=== PATIENT | male | born 1985 | race African-American/Black ===

== ENCOUNTER 2017-04-25 15:50 | Emergency (ER) | payer BC ==
[2017-04-25 15:57] VITALS: BP 149/88
--- NOTE | 2017-04-25 17:07 | ER Document Report ---
HPI - HPI Patient complains to provider of: pruritic rash Onset: Other - 2 weeks Pain Level: Denies Context: 31 yo male with pruritic rash that is spreading for 2 weeks. Started on his right forearm. No fever or chills, no tick bit, no travel outside the [place]. Spread to other parts of the body No fever or chills. No hx eczema. Associated Symptoms: None. denies: Body/muscle aches Exacerbated by: Denies Relieved by: Denies Notes: 31 yo male with pruritic rash for 2 weeks. Some papules, linear, blisters started in right arm, spred to trunk and legs. No tick bite, no travel outside [place]. No fever of chills. - ROS ROS below otherwise negative: Yes Systems Reviewed and Negative: Yes All other systems reviewed and negative - DERM Skin Color: Normal Past Medical History - General Information source: Patient - Social History Smoking Status: Unknown if Ever Smoked Frequency of alcohol use: None Drug Abuse: None Lives with: Family Family History: None - Medical History Medical History: Negative Renal/ Medical History: Denies: Hx Peritoneal Dialysis Surgical Hx: Negative - Immunizations Hx Diphtheria, Pertussis, Tetanus Vaccination: No - unk Vertical Provider Document - CONSTITUTIONAL Agree With Documented VS: Yes Exam Limitations: No Limitations General Appearance: No Apparent Distress - INFECTION CONTROL TRAVEL OUTSIDE OF THE [place] IN LAST 30 DAYS: No - HEENT HEENT: Normal ENT Exam - NECK Neck: Supple - RESPIRATORY Respiratory: Breath Sounds Normal, No Respiratory Distress O2 Sat by Pulse Oximetry: 100 - CARDIOVASCULAR Cardiovascular: Regular Rate, Regular Rhythm - MUSCULOSKELETAL/EXTREMETIES Musculoskeletal/Extremeties: MAEW, FROM - NEURO Level of Consciousness: Awake, Alert - DERM Integumentary: Rash - papular, linear arms, leg, waist, scaling in areas or trunk, Course - Vital Signs Vital signs: Temp Pulse Resp BP Pulse Ox 98.3 F 57 L 16 149/88 H 100 04/25/17 15:55 04/25/17 15:55 04/25/17 15:55 04/25/17 15:55 04/25/17 15:55 Discharge - Discharge Clinical Impression: Urticaria, Poison ryann Condition: Good Disposition: HOME, SELF-CARE Instructions: Use of Diphenhydramine, Corticosteroid Medication ([facility]), Contact Dermatitis ([facility]), Acute Urticaria ([facility]) Additional Instructions: Continue [id number] Benadryl Finish the steroid medication see the reimbursement rep if persists The emergency room for any signs of infection or fever Please complete the patient satisfaction survey if you get one, and return it.. If you do not receive a survey, then you can go to the [facility] website, [email or web address] and place your comments about your very good care. Thank you very much. It was a pleasure being your medical provider today. Prescriptions: Prednisone [Deltasone 10 mg Tablet] 10 mg PO ASDIR PRN #21 tablet PRN Reason: Forms: Return to Work
== END 2017-04-25 17:30 | disposition home or self-care (01) ==
LOC: ER 15:50
DX: L23.7 Allergic contact dermatitis due to plants, except food (principal)
CPT/HCPCS: 99282

== ENCOUNTER 2017-10-16 13:37 | Emergency (ER) | payer BC ==
[2017-10-16 13:52] VITALS: BP 125/78
[2017-10-16] MEDS ORDERED: DIPH/PERTUSS(ACELL)/TETANUS VAC/PF 0.5 ML SYR (>=10YO) IM ONE (14:18)
--- NOTE | 2017-10-16 14:21 | ER Document Report ---
HPI - HPI Patient complains to provider of: Mouth laceration Onset: Just prior to arrival Onset/Duration: Sudden Quality of pain: Achy Pain Level: 2 Context: Patient states he was playing basketball and another player elbowed him in the mouth. Patient with laceration inside mouth. Patient uncertain if the tooth may have punctured his skin. Associated Symptoms: Other - Oral laceration Exacerbated by: Denies Relieved by: Denies Similar symptoms previously: No Recently seen / treated by doctor: No - ROS ROS below otherwise negative: Yes Systems Reviewed and Negative: Yes All other systems reviewed and negative - RESPIRATORY Respiratory: DENIES: Trouble Breathing - GASTROINTESTINAL Gastrointestinal: DENIES: Nausea, Patient vomiting - DERM Skin Color: Normal Skin Problems: Laceration Past Medical History - General Information source: Patient - Social History Smoking Status: Never Smoker Frequency of alcohol use: Occasional Drug Abuse: None Occupation: [employer] Family History: None - Medical History Medical History: Negative Pulmonary Medical History: Denies: Hx Asthma, Hx Pneumonia Renal/ Medical History: Denies: Hx Peritoneal Dialysis Skin Medical History: Denies Hx Eczema, Denies Hx MRSA, Denies Hx Psoriasis Surgical Hx: Negative - Immunizations Hx Diphtheria, Pertussis, Tetanus Vaccination: No - unk Vertical Provider Document - CONSTITUTIONAL Agree With Documented VS: Yes Exam Limitations: No Limitations General Appearance: WD/WN, No Apparent Distress - INFECTION CONTROL TRAVEL OUTSIDE OF THE [place] IN LAST 30 DAYS: No - HEENT HEENT: Atraumatic, Normocephalic Mouth Diagram: 1 - lac - NECK Neck: Normal Inspection - RESPIRATORY Respiratory: Breath Sounds Normal, No Respiratory Distress O2 Sat by Pulse Oximetry: 99 - CARDIOVASCULAR Cardiovascular: Regular Rate, Regular Rhythm - MUSCULOSKELETAL/EXTREMETIES Musculoskeletal/Extremeties: MAEW - NEURO Level of Consciousness: Awake, Alert, Appropriate Motor/Sensory: No Motor Deficit - DERM Integumentary: Warm, Dry, Laceration - Irregular laceration to sulcus inside mouth, no concern for dental fragment Course - Re-evaluation Re-evalutation: 10/16/17 14:[address] Farmer, Dr. Farmer to bedside, does not advise suturing at this time. - Vital Signs Vital signs: Temp Pulse Resp BP Pulse Ox 98.8 F 78 16 125/78 99 10/16/17 13:52 10/16/17 13:52 10/16/17 13:52 10/16/17 13:52 10/16/17 13:52 Discharge - Discharge Clinical Impression: Laceration of oral cavity Qualifiers: Encounter type: initial encounter Qualified Code(s): S01.512A - Laceration without foreign body of oral cavity, initial encounter Condition: Stable Disposition: HOME, SELF-CARE Instructions: Oral Laceration, Not Sutured ([facility]), Prophylactic Antibiotic ([facility]) , Tetanus Immunization Given ([facility]) Additional Instructions: Return immediately for any new or worsening symptoms Followup with your primary care provider, call tomorrow to make a followup appointment Rinse mouth out after meals Prescriptions: Cephalexin Monohydrate [Keflex 500 mg Capsule] 500 mg PO Q6H 5 Days capsule Referrals: [facility] [Provider Group] - Follow up as needed
== END 2017-10-16 14:58 | disposition home or self-care (01) ==
LOC: ER 13:37
DX: S01.512A Laceration without foreign body of oral cavity, initial encounter (principal); W51.XXXA Accidental striking against or bumped into by another person, initial encounter; Y93.67 Activity, basketball
CPT/HCPCS: 90471; 90715; 99282

== ENCOUNTER 2020-01-10 21:15 | Emergency (ER) | payer BC ==
[2020-01-10] MEDS ORDERED: TETRACAINE HCL 0.5% OPH SOLN 4 ML OS ONE (21:42)
--- NOTE | 2020-01-10 21:43 | ER Document Report ---
ED Medical Screen (RME) - General Chief Complaint: Redness of Eye Stated Complaint: EYE PAIN Time Seen by Provider: 01/10/20 21:41 TRAVEL OUTSIDE OF THE [place] IN LAST 30 DAYS: No - HPI Notes: 01/10/20 21:42 Patient is a 34-year-old male with no significant past medical history who presents complaining of left eye redness, irritation, burning, occasional itching that began this morning. He has not had any drainage. Denies drug allergies. He does have some light sensitivity. No fever or GRUBBS. No recent illness. I have treated and performed a rapid initial assessment of this patient. A comprehensive ED assessment and evaluation of the patient, analysis of test results and completion of medical decision making process will be conducted by additional ED providers. PHYSICAL EXAMINATION: GENERAL: Well-appearing, well-nourished and in no acute distress. A&Ox4. Answers questions appropriately. Left eye: Left eye is injected without any obvious drainage or matting. PERRLA, EOMI bilaterally. - Related Data Allergies/Adverse Reactions: No Known Allergies Allergy (Verified 03/27/14 09:13) Past Medical History - Social History Chew tobacco use (# tins/day): No Frequency of alcohol use: Occasional Drug Abuse: None Pulmonary Medical History: Denies: Hx Asthma, Hx Pneumonia Renal/ Medical History: Denies: Hx Peritoneal Dialysis Skin Medical History: Denies Hx Eczema, Denies Hx MRSA, Denies Hx Psoriasis - Immunizations Hx Diphtheria, Pertussis, Tetanus Vaccination: No - unk Physical Exam - Vital signs Vitals: Temp Pulse Resp BP Pulse Ox 98.1 F 60 20 123/68 99 01/10/20 21:01/10/20 21:29 01/10/20 21:01/10/20 21:29 01/10/20 21:29 Course - Vital Signs Vital signs: Temp Pulse Resp BP Pulse Ox 98.1 F 60 20 123/68 99 01/10/20 21:29 01/10/20 21:29 01/10/20 21:29 01/10/20 21:29 01/10/20 21:29
--- NOTE | 2020-01-11 | ER Document Report ---
HPI - HPI Patient complains to provider of: Left eye redness Time Seen by Provider: 01/10/20 21:41 Onset: This morning Onset/Duration: Waxing and waning Quality of pain: Achy Pain Level: 1 Context: Patient presents complaining of left eye redness and pruritus. Patient denies any drainage. Patient denies any use of contact lenses. Patient states he is supposed to wear glasses although has not worn them for over a year. Patient denies any trauma to the eye. Patient denies any change in vision. Associated Symptoms: Other - Left eye redness. denies: Fever, Headache Exacerbated by: Denies Relieved by: Denies Similar symptoms previously: No Recently seen / treated by doctor: No - ROS ROS below otherwise negative: Yes Systems Reviewed and Negative: Yes All other systems reviewed and negative - EENT EENT: REPORTS: Eye problems - NEURO Neurology: DENIES: Headache - GASTROINTESTINAL Gastrointestinal: DENIES: Nausea, Patient vomiting - DERM Skin Color: Normal Skin Problems: None Past Medical History - General Information source: Patient - Social History Smoking Status: Never Smoker Chew tobacco use (# tins/day): No Frequency of alcohol use: Occasional Drug Abuse: None Occupation: Retail Family History: None Patient has suicidal ideation: No Patient has homicidal ideation: No - Medical History Medical History: Negative Pulmonary Medical History: Denies: Hx Asthma, Hx Pneumonia Renal/ Medical History: Denies: Hx Peritoneal Dialysis Skin Medical History: Denies Hx Eczema, Denies Hx MRSA, Denies Hx Psoriasis Surgical Hx: Negative - Immunizations Hx Diphtheria, Pertussis, Tetanus Vaccination: No - unk Vertical Provider Document - CONSTITUTIONAL Agree With Documented VS: Yes Exam Limitations: No Limitations General Appearance: WD/WN - INFECTION CONTROL TRAVEL OUTSIDE OF THE [place] IN LAST 30 DAYS: No - HEENT HEENT: Atraumatic, Normocephalic Notes: Sclera injected bilaterally, left worse than right, minimal edema noted to upper and lower eyelid, no ophthalmoplegia, extraocular movements intact. No corneal abrasion, ulcer, foreign body or dendrite. No fluorescein uptake. Intraocular pressure measured at 16 with a confidence interval 95. - NECK Neck: Normal Inspection, Supple. negative: Lymphadenopathy-Left, Lymphadenopathy-Right - RESPIRATORY Respiratory: Breath Sounds Normal, No Respiratory Distress - CARDIOVASCULAR Cardiovascular: Regular Rate, Regular Rhythm - MUSCULOSKELETAL/EXTREMETIES Musculoskeletal/Extremeties: MAEW - NEURO Level of Consciousness: Awake, Alert, Appropriate Motor/Sensory: No Motor Deficit - DERM Integumentary: Warm, Dry, No Rash Course - Re-evaluation Re-evalutation: 01/10/20 23:55 Patient reports that he is supposed to wear glasses but did not bring them and has not worn them for some time. Patient denies any change in vision. Patient does complain of occasional pruritus to the eyes. Patient with minimal mucousy discharge to the left eye. Will cover with antibiotics as well as an allergy eyedrop and encourage outpatient follow-up with ophthalmology. - Vital Signs Vital signs: Temp Pulse Resp BP Pulse Ox 98.1 F 60 20 123/68 99 01/10/20 21:29 01/10/20 21:29 01/10/20 21:29 01/10/20 21:29 01/10/20 21:29 Discharge - Discharge Clinical Impression: Conjunctivitis Qualifiers: Conjunctivitis type: unspecified Laterality: left Qualified Code(s): H10.9 - Unspecified conjunctivitis Condition: Stable Disposition: HOME, SELF-CARE Instructions: Antibiotic Therapy ([facility]), Conjunctivitis ([facility]), Eyedrop Use ([facility]) Additional Instructions: Return immediately for any new or worsening symptoms Follow-up with ophthalmology for any persistent problems Prescriptions: Olopatadine HCl [Pazeo] 1 drop OP DAILY #2.5 ml Polymyxin B Sulfate/Tmp [Polytrim Oph Soln 10 ml] 1 drop LFT_EYE ASDIR #1 bottle Forms: Return to Work Referrals: TAMIA BENITEZ DO [ACTIVE STAFF] - Follow up as needed
[2020-01-11 00:35] VITALS: BP 122/74
== END 2020-01-11 00:36 | disposition home or self-care (01) ==
LOC: ER 21:15
DX: H10.9 Unspecified conjunctivitis (principal); Z91.19 Patient's noncompliance with other medical treatment and regimen
CPT/HCPCS: 99283; J3490